=== PATIENT | female | born 2000 | race Caucasian/White ===

== ENCOUNTER 2019-04-26 18:28 | Emergency (ER) | payer OTHER ==
[2019-04-26 18:59] VITALS: BP 143/89
[2019-04-26] MEDS ORDERED: Ibuprofen TAB* 600 MG PO ONE (19:09)
--- NOTE | 2019-05-26 10:09 | UC ---
Pediatric ENT HPI - HPI Summary HPI Summary: Right ear pain. sore throat x 24 hours - History Of Current Complaint Chief Complaint: UCGeneralIllness Stated Complaint: EAR ACHE AND SORE THROAT Time Seen by Provider: 04/26/19 18:43 Hx Obtained From: Family/Report Checker Pain Intensity: 0 Pain Scale Used: 0-10 Numeric Aggravating Factor(s): Nothing Alleviating Factor(s): Nothing - Risk Factor(s) Epiglottis Risk Factors: Negative - Allergies/Home Medications Allergies/Adverse Reactions: Allergies Allergy/AdvReac Type Severity Reaction Status Date / Time No Known Allergies Allergy Verified 04/26/19 18:49 Past Medical History Respiratory History: Yes: Hx Asthma - exercise induced Review Of Systems All Other Systems Reviewed And Are Negative: Yes Constitutional: Negative: Fever, Chills ENT: Positive: Ear Pain. Negative: Throat Pain Respiratory: Negative: Cough Skin: Negative: Rash Neurological: Negative: Lethargy Physical Exam Triage Information Reviewed: Yes Vital Signs: Initial Vital Signs Temp 97.2 F 04/26/19 18:51 Pulse 102 04/26/19 18:51 Resp 16 04/26/19 18:51 BP 143/89 04/26/19 18:51 Pulse Ox 96 04/26/19 18:51 Vital Signs Reviewed: Yes Appearance: Well-Appearing ENT: Positive: Hearing grossly normal, Pharynx normal, TMs normal - left, TM bulging - partially R, TM dull - R, TM red - R, Uvula midline Neck: Positive: Supple, No Lymphadenopathy. Negative: Nuchal Rigidity Respiratory: Positive: Lungs clear Cardiovascular: Positive: Normal Pediatric EENT Course/Dx - Course Course Of Treatment: R OM on exam w/ one day of R ear pain. Afebrile but will tx. Discussed side effects of meds. vitals good. - Differential Dx/Diagnosis Differential Diagnosis/HQI/PQRI: Cerumen Impaction, Foreign Body, Otitis Media, Otitis Externa, URI Provider Diagnosis: Ear pain Discharge ED - Sign-Out/Discharge Documenting (check all that apply): Patient Departure All imaging exams completed and their final reports reviewed: No Studies - Discharge Plan Condition: Good Disposition: HOME Prescriptions: Amoxicillin/Clavulanate TAB* [Augmentin TAB 875*] 875 mg PO BID 7 Days #14 tab Patient Education Materials: Ear Infection (ED) Referrals: No Primary Care Phys,NOPCP [Primary Care Provider] - Additional Instructions: Please take the antibiotic for the full amount of days. - Billing Disposition and Condition Condition: GOOD Disposition: Home - Attestation Statements Provider Attestation: Per institutional requirements, I have reviewed the chart, however, I was not consulted specifically or made aware of this patient by the midlevel provider. I did not personally evaluate, interact with , or disposition this patient.
== END 2019-04-26 19:26 | disposition home or self-care (01) ==
LOC: UCEAST 18:28
DX: H92.01 Otalgia, right ear (principal); J02.9 Acute pharyngitis, unspecified
CPT/HCPCS: 99202; A9270-GY; G0463